=== PATIENT | female | born 1985 | race Caucasian/White ===

== ENCOUNTER → 2023-09-15 09:32 | Outpatient (CLI) | payer OTHER, SELFPAY ==
--- NOTE | 2023-09-15 09:38 | DI.RAD.S_ITS ---
PROCEDURE: XR LUMBAR SPINE MIN 4V INDICATIONS: BACK PAIN TECHNIQUE: 5 views of the lumbar spine were acquired, including bilateral oblique views. COMPARISON: None. FINDINGS: Bones: 5 nonrib-bearing vertebrae are present. Mild facet arthropathy of the lower lumbar spine. There is normal bony alignment. No vertebral body compression fractures. No suspicious bony lesions. Soft tissues: Overlying bowel gas pattern is normal. No suspicious soft tissue calcifications. Oblique images: No pars defects. IMPRESSION: No acute bony abnormality. Mild facet arthropathy of the lower lumbar spine. Dictated by: Rock Islas M.D. on 09/15/2023 at 10:44 Approved by: Rock Islas M.D. on 09/15/2023 at 10:45
--- NOTE | 2023-09-15 09:38 | DI.RAD.S_ITS ---
PROCEDURE: XR CERVICAL SPINE 4V OR 5V INDICATIONS: NECK PAIN TECHNIQUE: 5 views of the cervical spine acquired. COMPARISON: None. FINDINGS: Bones: No fractures or dislocations to the C7 level. Straightening of the normal cervical lordosis. Oblique images demonstrate no bony foraminal stenoses. Left oblique images are not well positioned and the osseous neural foramina are not well evaluated. Mild degenerative endplate changes and facet arthropathy. Soft tissues: No prevertebral soft tissue swelling. IMPRESSION: Mild degenerative changes. No acute osseous abnormalities. Dictated by: Rock Islas M.D. on 09/15/2023 at 10:45 Approved by: Rock Islas M.D. on 09/15/2023 at 10:46
== END ==
PROVIDERS: PCP Family Medicine; Referring Provider Physical Medicine & Rehabilitation; Visit Provider Physical Medicine & Rehabilitation
DX: M47.812 Spondylosis without myelopathy or radiculopathy, cervical region (principal); M47.816 Spondylosis without myelopathy or radiculopathy, lumbar region; M54.2 Cervicalgia; M54.9 Dorsalgia, unspecified
CPT/HCPCS: 72050; 72110

== ENCOUNTER → 2023-09-15 10:10 | Outpatient (CLI) | payer OTHER, SELFPAY ==
[2023-09-15 12:40] LABS: Hemoglobin A1C% w Est Avg Glu 5.6 % (4.0-6.0)
== END ==
PROVIDERS: PCP Family Medicine; Referring Provider Family Medicine; Visit Provider Family Medicine
DX: M47.812 Spondylosis without myelopathy or radiculopathy, cervical region (principal); M47.816 Spondylosis without myelopathy or radiculopathy, lumbar region; M54.2 Cervicalgia; M54.9 Dorsalgia, unspecified; Z86.32 Personal history of gestational diabetes
CPT/HCPCS: 36415; 72050; 72110; 83036